=== PATIENT | male | born 1970 | race Caucasian/White ===

== ENCOUNTER 2021-06-11 03:51 | Emergency (ER) | payer SELFPAY ==
[~2021-06-11] VITALS: Ht 175.3 cm; Wt 86.2 kg
--- NOTE | 2021-06-11 04:00 | NUR ---
Dr. Mcdaniel at bedside for MSE.
[2021-06-11] MEDS ORDERED: BENZONATATE 100 MG CAPSULE PO ONE (04:15)
[2021-06-11] MEDS ORDERED: BENZONATATE 100 MG CAPSULE ONE (04:20)
[2021-06-11] MEDS ORDERED: ALBU18HF2 INH (04:24)
[2021-06-11] MEDS ORDERED: BENZ-13 PO (04:24)
--- NOTE | 2021-06-11 06:05 | NUR ---
Patient discharged to home in stable condition. Written and verbal after care instructions given. Patient verbalizes understanding of instructions. Stressed follow up or return to ER for worsening s/s. Patient out of ER with steady gait, no acute signs of distress, VSS, all belongings taken, provided with copies of lab results.
[2021-06-11 06:07] VITALS: BP 135/90
== END 2021-06-11 06:07 | disposition home or self-care (01) ==
LOC: ER 03:51
DX: U07.1 COVID-19 (principal); R03.0 Elevated blood-pressure reading, without diagnosis of hypertension
CPT/HCPCS: 87400; A4663